=== PATIENT | male | born 1975 | race Caucasian/White ===

== ENCOUNTER 2024-12-17 06:56 | Emergency (ER) | payer SELFPAY ==
[~2024-12-17] VITALS: Ht 167.6 cm; Wt 98.6 kg
[2024-12-17 07:05] VITALS: O2SAT 99
[2024-12-17 07:38] LABS: CLARITY URINE CLEAR (CLEAR); COLOR URINE YELLOW (YELLOW); GLUCOSE URINE NEGATIVE (NEGATIVE); KETONES URINE TRACE (NEGATIVE); LEUKOCYTE ESTERASE URINE 1+ (NEGATIVE); NITRITE URINE NEGATIVE (NEGATIVE); OCCULT BLOOD URINE 3+ (NEGATIVE); PH URINE 5.5 (4.5-8.0); PROTEIN URINE 2+ (NEGATIVE); SPECIFIC GRAVITY URINE 1.030 (1.005-1.030); UROBILINOGEN URINE 1.0 E.U./dL (0.2-1.0)
[2024-12-17 08:18] LABS: MUCUS URINE TRACE /lpf (NONE/TRACE); SQUAMOUS EPITHELIAL CELL URINE FEW /lpf (RARE/1+)
[2024-12-17 08:19] LABS: BACTERIA URINE 1+; RBC URINE 50-100 /hpf (0-2)
[2024-12-17] MEDS: ONDANSETRON HCL 4MG/2ML INJ IV ONE (08:45)
[2024-12-17] MEDS: SODIUM CHLORIDE 0.9% 1,000 ML IV ONE (08:45)
[2024-12-17] MEDS: KETOROLAC 15MG/ML VIAL IV ONE (08:45)
[2024-12-17 09:01] LABS: BASOPHILS % 0.3 % (0.0-2.0); EOSINOPHILS % 0.3 % (0.0-5.0); HEMATOCRIT. 47.1 % (42.0-52.0); HEMOGLOBIN. 15.6 g/dL (14.0-18.0); LYMPHOCYTES % 14.4 % (20.0-50.0); MEAN PLATELET VOLUME 8.6 fl (7.4-10.4); MONOCYTES % 8.8 % (2.0-8.0); NEUTROPHILS % 76.2 % (40.0-76.0); PLATELET 213 x1000/uL (130-400); RED BLOOD CELL COUNT 5.30 mill/uL (4.7-6.1); RED CELL DISTRIBUTION WIDTH 13.4 % (11.6-14.6)
[2024-12-17 09:12] LABS: CREATININE 1.5 mg/dL (0.6-1.3); UREA NITROGEN BLOOD 19 mg/dL (9-23)
[2024-12-17 09:14] LABS: ASPARTATE AMINOTRANSFERASE 43 IU/L (<34); BILIRUBIN DIRECT 0.2 mg/dL (<=3.0); BILIRUBIN TOTAL 0.7 mg/dL (0.1-1.0); PROTEIN TOTAL 7.7 g/dL (6.0-8.3)
[2024-12-17] MEDS ORDERED: TAMS-54 MT (10:21)
[2024-12-17] MEDS ORDERED: IBUP-1455 MT (10:21)
[2024-12-17 11:31] VITALS: BP 130/80; PULSE 62; RESP 16; TEMP 37; O2SAT 100
== END 2024-12-17 11:33 | disposition home or self-care (01) ==
LOC: ER 06:56
DX: N17.9 Acute kidney failure, unspecified (principal); N20.0 Calculus of kidney; N31.2 Flaccid neuropathic bladder, not elsewhere classified; N13.30 Unspecified hydronephrosis; Z79.899 Other long term (current) drug therapy
CPT/HCPCS: 80076; 80048; 81003; 80320; 83690; 85025; 36415; 74176; 96361; 96374; 96375; 99285; J1885; J2405; J7030; Z7610; G0480